=== PATIENT | female | born 1940 | race Caucasian/White ===

== ENCOUNTER 2024-04-14 18:15 | Inpatient (IN) | payer MEDICARE, OTHER ==
[~2024-04-14] VITALS: Ht 152.4 cm; Wt 101.3 kg
[2024-04-14] MEDS ORDERED: CARV12.52 PO (20:00)
[2024-04-14] MEDS ORDERED: FLUT16SP16 BNOSTRILS (20:00)
[2024-04-14] MEDS ORDERED: MONT10TA33 PO (20:00)
[2024-04-14] MEDS ORDERED: HYDR453. TP (20:00)
[2024-04-14] MEDS ORDERED: DAPA10TA PO (20:00)
[2024-04-14] MEDS ORDERED: ALPR1TAB7 PO (20:00)
[2024-04-14] MEDS ORDERED: DICL100G31 TP (20:00)
[2024-04-14] MEDS ORDERED: SPIR25TA6 PO (20:00)
[2024-04-14] MEDS ORDERED: CLOP75TA33 PO (20:00)
[2024-04-14] MEDS ORDERED: PANT40TA49 PO (20:00)
[2024-04-14] MEDS ORDERED: SACU1TAB PO (20:00)
[2024-04-14] MEDS ORDERED: IPRA3AMP23 IH (20:00)
[2024-04-14] MEDS ORDERED: KETO15CR2 TP (20:00)
[2024-04-14] MEDS ORDERED: ROSU20TA2 PO (20:00)
[2024-04-14] MEDS ORDERED: REMEDY ESSENTIAL ZINC PASTE 113 GM TOP PRN (20:15)
[2024-04-14 20:35] VITALS: BP 173/80; TEMP 97.9; O2SAT 93
[2024-04-14] MEDS: METOPROLOL TARTRATE 25 MG TABLET PO SCH (21:30)
[2024-04-14] MEDS: ALPRAZOLAM 0.25 MG TABLET PO SCH (21:30)
[2024-04-15] MEDS ORDERED: HYDROCORTISONE 1% RECTAL CREAM 28.35 GM TUBE RC PRN (08:15)
[2024-04-15 08:29] VITALS: BP 188/99
[2024-04-15] MEDS: PANTOPRAZOLE SODIUM 40 MG TABLET.DR PO SCH (08:44)
[2024-04-15] MEDS ORDERED: CARVEDILOL 12.5 MG TABLET PO SCH (08:45)
[2024-04-15] MEDS: hydrALAZINE HCL 25 MG TABLET PO PRN (08:49)
[2024-04-15] MEDS: CARVEDILOL 12.5 MG TABLET PO SCH (09:00)
[2024-04-15] MEDS ORDERED: PANTOPRAZOLE SODIUM 40 MG TABLET.DR PO SCH (09:00)
[2024-04-15] MEDS: CLOPIDOGREL 75 MG TABLET PO SCH (09:00)
[2024-04-15] MEDS: SPIRONOLACTONE 25 MG TABLET PO SCH (09:00)
[2024-04-15] MEDS: MONTELUKAST SODIUM 10 MG TABLET PO SCH (09:00)
[2024-04-15] MEDS: SACUBITRIL/VALSARTAN 24 MG-26 TABLET PO SCH (09:00)
[2024-04-15] MEDS ORDERED: KETOCONAZOLE 2% CREAM 30 GM TUBE TP SCH (09:00)
[2024-04-15] MEDS: hydrALAZINE HCL 20 MG/1 ML VIAL IV PRN (09:54)
[2024-04-15 12:31] LABS: BASOPHILS # (AUTO) 0.2 K/UL (0.0-0.2); EOSINOPHILS # (AUTO) 0.1 K/uL (0.0-0.7); EOSINOPHILS % (AUTO) 0.6 % (0.0-7.0); HEMATOCRIT 35.1 % (31.2-41.9); HEMOGLOBIN 11.8 g/dL (10.9-14.3); LYMPHOCYTES # (AUTO) 1.4 K/uL (0.8-4.8); MEAN CORPUSCULAR HGB CONC 34 g/dL (32.3-35.6); MEAN CORPUSCULAR VOLUME 83.6 fL (75.5-95.3); MONOCYTES % (AUTO) 6.2 % (0.0-11.0); NEUTROPHILS # (AUTO) 13.3 K/uL (1.8-8.9); NEUTROPHILS % (AUTO) 83.2 % (38.5-71.5); PLATELET COUNT (AUTO) 195 K/uL (179-408); RED CELL DISTRIBUTION WIDTH 13.8 % (12.3-17.7)
[2024-04-15 12:48] LABS: DIFFERENTIAL COMMENT 1
[2024-04-15 12:49] LABS: CALCIUM 9.4 mg/dL (8.5-10.1); CARBON DIOXIDE 29 mmol/L (21-32); CHLORIDE 105 mmol/L (98-107); CREATININE 0.8 mg/dL (0.6-1.3); GLUCOSE 145 mg/dL (74-106); POTASSIUM 3.6 mmol/L (3.5-5.1); SODIUM SERUM 145 mmol/L (136-145); UREA NITROGEN, BLOOD 16 mg/dL (7-18)
[2024-04-15 12:55] LABS: ALANINE AMINOTRANSFERASE 17 U/L (14-59); ALBUMIN 3.2 g/dL (3.4-5.0); ALKALINE PHOSPHATASE 98 U/L (50-136); ASPARTATE AMINOTRANSFERASE 16 U/L (15-37); BILIRUBIN,TOTAL 0.6 mg/dL (0.2-1.0)
[2024-04-15] MEDS ORDERED: MIEBO EACHEYE (13:40)
[2024-04-15 16:00] VITALS: BP 147/78; TEMP 97.6; O2SAT 97
[2024-04-15 16:30] LABS: *BILIRUBIN,URIN NEGATIVE (NEGATIVE); *BLOOD, URINE 1+ (NEGATIVE); *CLARITY,URINE CLEAR (CLEAR); *COLOR,URINE YELLOW (YELLOW); *KETONES,URINE TRACE (NEGATIVE); *PROTEIN,URINE 1+ (NEGATIVE); *UROBILINOGEN,URINE 0.2 E.U./dl (NORMAL); LEUKOCYTE ESTERASE ,URINE NEGATIVE (NEGATIVE); NITRITE, URINE NEGATIVE (NEGATIVE); UGLUCOSE 2+ (NEGATIVE)
[2024-04-15 16:53] LABS: BACTERIA,URINE NONE SEEN /HPF (NONE SEEN); SQUAMOUS EPITHELIAL CELL,UR FEW /HPF (NONE SEEN); WBC,URINE 0-3 /HPF (0-3)
[2024-04-15] MEDS: CLOTRIMAZOLE 1% CREAM 30 GM TUBE TOP SCH (17:47)
[2024-04-15 19:00] VITALS: BP 154/93; TEMP 98.1; O2SAT 94
[2024-04-15] MEDS ORDERED: Medication Not On Formulary EA (Rosuvastatin Calcium (Crestor) 1 TAB) PO SCH (21:00)
[2024-04-15] MEDS ORDERED: ALPRAZOLAM 0.5 MG TABLET PO SCH (21:00)
[2024-04-15] MEDS: ATORVASTATIN 40 MG TABLET PO SCH (21:23)
[2024-04-16 06:00] VITALS: BP 186/97; TEMP 97.9; O2SAT 95
[2024-04-16 06:40] VITALS: BP 173/71; O2SAT 95
[2024-04-16 16:00] VITALS: BP 142/58; TEMP 97.6; O2SAT 98
[2024-04-16] MEDS: DAPAGLIFLOZIN PROPANEDIOL 5 MG TABLET PO SCH (16:39)
[2024-04-16] MEDS: MONTELUKAST SODIUM 10 MG TABLET PO SCH (17:31)
[2024-04-16 20:00] VITALS: BP 133/63; TEMP 98.8; O2SAT 96
[2024-04-17 06:00] VITALS: BP 141/58; TEMP 98.1; O2SAT 94
[2024-04-17] MEDS ORDERED: IV LACTATED RINGERS SOLUTION 1,000 ML BAG IV SCH (14:00)
[2024-04-17] MEDS ORDERED: CEFOTAXIME SODIUM 500 MG VIAL IV SCH (14:00)
[2024-04-17 14:05] VITALS: BP 116/60; TEMP 98; O2SAT 95
[2024-04-17 15:27] VITALS: BP 105/54; TEMP 97.6; O2SAT 93
[2024-04-17] MEDS: VANCOMYCIN IV 1,000 MG in IV DEXTROSE 5% 250 ML IV SCH (15:37)
[2024-04-17] MEDS: IV LACTATED RINGERS SOLUTION 1,000 ML IV ONE (15:38)
[2024-04-17 20:00] VITALS: BP 121/47; TEMP 98.8; O2SAT 95
[2024-04-17] MEDS: CEFEPIME HCL 2 GM in IV DEXTROSE 5% 100 ML IV SCH (22:21)
[2024-04-17 22:24] LABS: BASOPHILS # (AUTO) 0.1 K/UL (0.0-0.2); BASOPHILS % (AUTO) 0.6 % (0.0-2.0); EOSINOPHILS # (AUTO) 0.3 K/uL (0.0-0.7); EOSINOPHILS % (AUTO) 1.8 % (0.0-7.0); HEMATOCRIT 31.1 % (31.2-41.9); HEMOGLOBIN 10.3 g/dL (10.9-14.3); LYMPHOCYTES # (AUTO) 1.3 K/uL (0.8-4.8); LYMPHOCYTES % (AUTO) 8.4 % (20.5-51.5); MEAN CORPUSCULAR HGB CONC 33 g/dL (32.3-35.6); MEAN CORPUSCULAR VOLUME 84.3 fL (75.5-95.3); MONOCYTES # (AUTO) 1.4 K/uL (0.1-1.30); MONOCYTES % (AUTO) 8.9 % (0.0-11.0); NEUTROPHILS # (AUTO) 12.8 K/uL (1.8-8.9); NEUTROPHILS % (AUTO) 80.3 % (38.5-71.5); PLATELET COUNT (AUTO) 184 K/uL (179-408); RED BLOOD CELL COUNT(AUTO) 3.69 MIL/uL (3.63-4.92); RED CELL DISTRIBUTION WIDTH 13.8 % (12.3-17.7); WHITE BLOOD COUNT (AUTO) 15.9 K/uL (3.8-11.8)
[2024-04-17 22:30] LABS: DIFFERENTIAL COMMENT 1
[2024-04-17 22:34] LABS: CALCIUM 8.8 mg/dL (8.5-10.1); CARBON DIOXIDE 29 mmol/L (21-32); CHLORIDE 106 mmol/L (98-107); GLUCOSE 136 mg/dL (74-106); MAGNESIUM 2.2 mg/dL (1.8-2.4); POTASSIUM 3.9 mmol/L (3.5-5.1); SODIUM SERUM 144 mmol/L (136-145); UREA NITROGEN, BLOOD 40 mg/dL (7-18)
[2024-04-18] MEDS: ACETAMINOPHEN 500 MG TABLET PO PRN (04:50)
[2024-04-18 05:00] VITALS: BP 168/67; TEMP 99.1; O2SAT 92
[2024-04-18 05:16] VITALS: BP 140/60; TEMP 98.9; O2SAT 97
[2024-04-18] MEDS: HYDROCORTISONE 1% RECTAL CREAM 28.35 GM TUBE RC PRN (09:33)
[2024-04-18 09:47] LABS: CALCIUM 8.8 mg/dL (8.5-10.1); CARBON DIOXIDE 28 mmol/L (21-32); CHLORIDE 104 mmol/L (98-107); CREATININE 1.1 mg/dL (0.6-1.3); GLUCOSE 155 mg/dL (74-106); POTASSIUM 4.2 mmol/L (3.5-5.1); SODIUM SERUM 142 mmol/L (136-145); UREA NITROGEN, BLOOD 39 mg/dL (7-18)
[2024-04-18] MEDS ORDERED: diphenhydrAMINE 50 MG/1 ML VIAL IV PRN (10:30)
[2024-04-18 13:52] VITALS: O2SAT 97
[2024-04-18 15:13] VITALS: BP 128/54; TEMP 98.1; O2SAT 97
[2024-04-18] MEDS ORDERED: NEOMY/BACITRAC/POLYMI OINT 28.35 GM TUBE TOP SCH (17:45)
[2024-04-18] MEDS: VANCOMYCIN IV 1,000 MG in IV DEXTROSE 5% 250 ML IV SCH (18:33)
[2024-04-18 22:00] VITALS: BP 136/61; TEMP 98.4; O2SAT 97
[2024-04-19 04:27] VITALS: O2SAT 98
[2024-04-19 06:00] VITALS: BP 139/60; TEMP 99.5; O2SAT 97
[2024-04-19 07:33] LABS: CARBON DIOXIDE 30 mmol/L (21-32); CHLORIDE 104 mmol/L (98-107); CREATININE 1.1 mg/dL (0.6-1.3); GLUCOSE 171 mg/dL (74-106); SODIUM SERUM 140 mmol/L (136-145); UREA NITROGEN, BLOOD 41 mg/dL (7-18)
[2024-04-19 12:20] VITALS: O2SAT 97
[2024-04-19 15:17] VITALS: BP 104/44; TEMP 98.7; O2SAT 99
[2024-04-19 15:24] VITALS: BP 104/44; TEMP 98.7; O2SAT 99
[2024-04-19 19:54] VITALS: BP 139/52; TEMP 97.9; O2SAT 95
[2024-04-20 00:24] VITALS: O2SAT 97
[2024-04-20 05:12] VITALS: BP 154/77; TEMP 98; O2SAT 96
[2024-04-20 07:45] LABS: CALCIUM 8.4 mg/dL (8.5-10.1); CARBON DIOXIDE 28 mmol/L (21-32); CHLORIDE 103 mmol/L (98-107); GLUCOSE 143 mg/dL (74-106); SODIUM SERUM 137 mmol/L (136-145); UREA NITROGEN, BLOOD 36 mg/dL (7-18)
[2024-04-20 15:48] VITALS: O2SAT 98
[2024-04-20 16:37] VITALS: BP 148/66; TEMP 98; O2SAT 95
[2024-04-20 19:56] VITALS: BP 142/72; TEMP 98; O2SAT 96
[2024-04-21 05:39] VITALS: BP 106/74; TEMP 97.4; O2SAT 96
[2024-04-21 12:31] LABS: *BILIRUBIN,URIN NEGATIVE (NEGATIVE); *BLOOD, URINE 2+ (NEGATIVE); *CLARITY,URINE CLEAR (CLEAR); *COLOR,URINE YELLOW (YELLOW); *KETONES,URINE NEGATIVE (NEGATIVE); *PROTEIN,URINE 2+ (NEGATIVE); *UROBILINOGEN,URINE 0.2 E.U./dl (NORMAL); LEUKOCYTE ESTERASE ,URINE NEGATIVE (NEGATIVE); NITRITE, URINE NEGATIVE (NEGATIVE); PH,URINE 6.5 (5.0-8.0); UGLUCOSE 2+ (NEGATIVE)
[2024-04-21 12:32] LABS: BACTERIA,URINE FEW /HPF (NONE SEEN); RBC,URINE 20-50 /HPF (0-3); SQUAMOUS EPITHELIAL CELL,UR FEW /HPF (NONE SEEN); WBC,URINE 0-3 /HPF (0-3)
[2024-04-21 13:29] LABS: BASOPHILS # (AUTO) 0.1 K/UL (0.0-0.2); BASOPHILS % (AUTO) 0.8 % (0.0-2.0); EOSINOPHILS # (AUTO) 0.4 K/uL (0.0-0.7); EOSINOPHILS % (AUTO) 2.7 % (0.0-7.0); HEMATOCRIT 33.3 % (31.2-41.9); HEMOGLOBIN 10.9 g/dL (10.9-14.3); LYMPHOCYTES # (AUTO) 1.9 K/uL (0.8-4.8); LYMPHOCYTES % (AUTO) 12.6 % (20.5-51.5); MEAN CORPUSCULAR HEMOGLOBIN 28.1 uug (24.7-32.8); MEAN CORPUSCULAR HGB CONC 33 g/dL (32.3-35.6); MEAN CORPUSCULAR VOLUME 85.4 fL (75.5-95.3); MONOCYTES # (AUTO) 1.4 K/uL (0.1-1.30); MONOCYTES % (AUTO) 9.6 % (0.0-11.0); NEUTROPHILS # (AUTO) 10.9 K/uL (1.8-8.9); NEUTROPHILS % (AUTO) 74.3 % (38.5-71.5); PLATELET COUNT (AUTO) 212 K/uL (179-408); RED CELL DISTRIBUTION WIDTH 13.7 % (12.3-17.7); WHITE BLOOD COUNT (AUTO) 14.7 K/uL (3.8-11.8)
[2024-04-21 13:31] LABS: DIFFERENTIAL COMMENT 1
[2024-04-21 13:37] LABS: CARBON DIOXIDE 25 mmol/L (21-32); CHLORIDE 102 mmol/L (98-107); GLUCOSE 138 mg/dL (74-106); POTASSIUM 4.5 mmol/L (3.5-5.1); SODIUM SERUM 135 mmol/L (136-145); UREA NITROGEN, BLOOD 30 mg/dL (7-18)
[2024-04-21] MEDS: IV D5/ 0.9% NACL 1,000 ML IV PRN (15:18)
[2024-04-21 16:50] VITALS: BP 115/59; TEMP 97.7; O2SAT 97
[2024-04-21 19:58] VITALS: BP 153/74; TEMP 98; O2SAT 97
[2024-04-22 03:40] VITALS: BP 140/77; O2SAT 96
[2024-04-22 13:29] VITALS: BP 166/58
[2024-04-22 15:07] LABS: THYROID STIMULATING HORMONE 3.005 mIU/mL (0.358-3.740)
[2024-04-22 16:29] VITALS: BP 147/49; TEMP 98.3; O2SAT 97
[2024-04-22 20:05] VITALS: BP 166/69; TEMP 96.6; O2SAT 96
[2024-04-22 21:18] VITALS: BP 133/66; O2SAT 96
[2024-04-23 00:18] VITALS: BP 145/76
[2024-04-23 06:32] VITALS: BP 150/78; O2SAT 95
[2024-04-23] MEDS ORDERED: levETIRAcetam IV 500 MG in IV DEXTROSE 5% 100 ML IV SCH (12:00)
[2024-04-23] MEDS ORDERED: LORAZEPAM 2 MG/1 ML VIAL IV PRN (12:00)
[2024-04-23] MEDS: levETIRAcetam IV 500 MG in IV DEXTROSE 5% 100 ML IV SCH (12:32)
[2024-04-23 12:49] VITALS: BP 144/72; TEMP 98; O2SAT 98
== END 2024-04-23 17:07 | disposition short-term general hospital (02) | DRG 689 ==
PROVIDERS: ADMIT Physical Medicine & Rehabilitation Pain Medicine; ATTEND Physical Medicine & Rehabilitation Pain Medicine
PROC: 05H933Z Insertion of Infusion Device into Right Brachial Vein, Percutaneous Approach (ICD-10-PCS; principal; 2024-04-17)
DX: N39.0 Urinary tract infection, site not specified (principal); G93.41 Metabolic encephalopathy; N17.0 Acute kidney failure with tubular necrosis; J69.0 Pneumonitis due to inhalation of food and vomit; I69.351 Hemiplegia and hemiparesis following cerebral infarction affecting right dominant side; R47.01 Aphasia; E86.0 Dehydration; I11.0 Hypertensive heart disease with heart failure; I50.9 Heart failure, unspecified; Z95.0 Presence of cardiac pacemaker; E78.5 Hyperlipidemia, unspecified; F03.90 Unspecified dementia, unspecified severity, without behavioral disturbance, psychotic disturbance, mood disturbance, and anxiety; Z68.35 Body mass index [BMI] 35.0-35.9, adult; E66.9 Obesity, unspecified; J45.909 Unspecified asthma, uncomplicated; R56.9 Unspecified convulsions; Z88.0 Allergy status to penicillin; Z91.018 Allergy to other foods
CPT/HCPCS: 36415; 70450; 70551; 71045; 83605; 83735; 83921; 84100; 84443; 85025; 95819; 97535-GO-CO; A4663; A9150; J0360; J0692; J1953; J3370; J7042; J7050; J7120

== ENCOUNTER 2024-04-23 16:50 | Inpatient (IN) | payer MEDICARE, OTHER ==
[~2024-04-23] VITALS: Ht 152.4 cm; Wt 88.5 kg
[~2024-04-23 16:50] MED LIST: ALPR1TAB7 PO; CARV12.52 PO; CLOP75TA33 PO; DAPA10TA PO; DICL100G31 TP; FLUT16SP16 BNOSTRILS; HYDR453. TP; IPRA3AMP23 IH; KETO15CR2 TP; MIEBO EACHEYE; MONT10TA33 PO; PANT40TA49 PO; ROSU20TA2 PO; SACU1TAB PO; SPIR25TA6 PO
[2024-04-23] MEDS ORDERED: IV D5/ 0.9% NACL 1,000 ML IV PRN (17:45)
[2024-04-23] MEDS ORDERED: hydrALAZINE HCL 20 MG/1 ML VIAL IV PRN ×2 (17:45→18:00)
[2024-04-23] MEDS ORDERED: diphenhydrAMINE 50 MG/1 ML VIAL IV PRN ×2 (17:45→18:00)
[2024-04-23] MEDS: MONTELUKAST SODIUM 10 MG TABLET PO SCH (18:00)
[2024-04-23] MEDS ORDERED: CEFEPIME HCL 2 GM in IV DEXTROSE 5% 100 ML IV SCH ×2 (18:00→20:00)
[2024-04-23] MEDS: CARVEDILOL 12.5 MG TABLET PO SCH (18:00)
[2024-04-23] MEDS ORDERED: REMEDY ESSENTIAL ZINC PASTE 113 GM TOP PRN (18:00)
[2024-04-23] MEDS ORDERED: ACETAMINOPHEN 500 MG TABLET PO PRN ×2 (18:00)
[2024-04-23 19:00] VITALS: BP 145/69; TEMP 98.1; O2SAT 93
[2024-04-23] MEDS: CEFEPIME HCL 2 GM in IV DEXTROSE 5% 100 ML IV SCH (20:38)
[2024-04-23] MEDS ORDERED: Medication Not On Formulary EA (Rosuvastatin Calcium (Crestor) 1 TAB) PO SCH (21:00)
[2024-04-23] MEDS: ATORVASTATIN 40 MG TABLET PO SCH (21:00)
[2024-04-23] MEDS: SACUBITRIL/VALSARTAN 24 MG-26 TABLET PO SCH (21:00)
[2024-04-23] MEDS: levETIRAcetam IV 500 MG in IV DEXTROSE 5% 100 ML IV SCH (21:29)
[2024-04-23] MEDS ORDERED: ONDANSETRON 4 MG/2 ML VIAL IV PRN (21:45)
[2024-04-23] MEDS ORDERED: REMEDY ESSENTIAL ZINC PASTE 113 GM TP PRN (21:45)
[2024-04-23] MEDS ORDERED: ACETAMINOPHEN 650 MG SUPP.RECT RC PRN (21:45)
[2024-04-23] MEDS ORDERED: LORAZEPAM 2 MG/1 ML VIAL IV PRN (22:00)
[2024-04-24 06:00] VITALS: BP 133/62; TEMP 98.1; O2SAT 96
[2024-04-24] MEDS: PANTOPRAZOLE SODIUM 40 MG TABLET.DR PO SCH (06:30)
[2024-04-24 06:32] LABS: BASOPHILS # (AUTO) 0.1 K/UL (0.0-0.2); BASOPHILS % (AUTO) 0.7 % (0.0-2.0); EOSINOPHILS # (AUTO) 0.1 K/uL (0.0-0.7); EOSINOPHILS % (AUTO) 0.5 % (0.0-7.0); HEMATOCRIT 32.4 % (31.2-41.9); HEMOGLOBIN 11.1 g/dL (10.9-14.3); LYMPHOCYTES # (AUTO) 1.6 K/uL (0.8-4.8); LYMPHOCYTES % (AUTO) 7.5 % (20.5-51.5); MEAN CORPUSCULAR HEMOGLOBIN 28.9 uug (24.7-32.8); MEAN CORPUSCULAR HGB CONC 34 g/dL (32.3-35.6); MEAN CORPUSCULAR VOLUME 84.7 fL (75.5-95.3); MONOCYTES # (AUTO) 2.3 K/uL (0.1-1.30); MONOCYTES % (AUTO) 10.3 % (0.0-11.0); NEUTROPHILS # (AUTO) 17.7 K/uL (1.8-8.9); PLATELET COUNT (AUTO) 269 K/uL (179-408); RED BLOOD CELL COUNT(AUTO) 3.83 MIL/uL (3.63-4.92); RED CELL DISTRIBUTION WIDTH 14.1 % (12.3-17.7); WHITE BLOOD COUNT (AUTO) 21.8 K/uL (3.8-11.8)
[2024-04-24 06:37] LABS: CALCIUM 8.6 mg/dL (8.5-10.1); CARBON DIOXIDE 24 mmol/L (21-32); CHLORIDE 110 mmol/L (98-107); CREATININE 1.1 mg/dL (0.6-1.3); GLUCOSE 195 mg/dL (74-106); MAGNESIUM 1.8 mg/dL (1.8-2.4); PHOSPHOROUS 3.4 mg/dL (2.5-4.9); POTASSIUM 3.9 mmol/L (3.5-5.1); SODIUM SERUM 144 mmol/L (136-145); UREA NITROGEN, BLOOD 23 mg/dL (7-18)
[2024-04-24 06:44] LABS: DIFFERENTIAL COMMENT 1
[2024-04-24 08:00] VITALS: BP 121/59; TEMP 97.9; O2SAT 95
[2024-04-24] MEDS: IV D5 1/2 NS 1000 ML 1,000 ML IV PRN (08:09)
[2024-04-24] MEDS: SPIRONOLACTONE 25 MG TABLET PO SCH (09:00)
[2024-04-24] MEDS: CLOPIDOGREL 75 MG TABLET PO SCH (09:00)
[2024-04-24] MEDS: DAPAGLIFLOZIN PROPANEDIOL 5 MG TABLET PO SCH (09:00)
[2024-04-24] MEDS: PANTOPRAZOLE SODIUM 40 MG VIAL IV SCH (09:36)
[2024-04-24] MEDS: HEPARIN SODIUM,PORCINE 5,000 UNITS/ML VIAL SQ SCH (09:37)
[2024-04-24] MEDS: CLOTRIMAZOLE 1% CREAM 30 GM TUBE TOP SCH (09:39)
[2024-04-24 10:55] VITALS: BP 85/33; TEMP 98; O2SAT 88
[2024-04-24] MEDS: IV NORMAL SALINE 500 ML IV ONE (11:01)
[2024-04-24] MEDS ORDERED: VANCOMYCIN IV 1,000 MG in IV DEXTROSE 5% 250 ML IV ONE (11:15)
[2024-04-24] MEDS ORDERED: MVI ADULT 10 ML VIAL=1 AMP 10 ML, THIAMINE HCL INJ 100 MG, FOLIC ACID 1 MG, MAGNESIUM S... IV PRN (11:15)
[2024-04-24] MEDS ORDERED: NOREPINEPHRINE BITARTRATE 32 MG in IV NORMAL SALINE 218 ML IV PRN (11:15)
[2024-04-24 11:31] LABS: ABG BASE EXCESS -9.9 mmol/L (-2.0-3.0); ABG HCO3 16.5 mmol/L (21.0-28.0); ABG PCO2 38.4 mmHg (32.0-45.0); ABG PH 7.252 (7.350-7.450); ABG PO2 131.9 mmHg (83.0-108.0); ABG SITE LEFT RADIAL; ABG TOTAL HEMOGLOBIN 11.9 G/dL (12.0-16.0); AaDO2 98.2 mmHg; COHb 0.4 % (0.5-1.5); MetHb 0.1 % (0.0-1.5); O2Hb 97.9 % (94.0-98.0)
[2024-04-24] MEDS ORDERED: SODIUM BICARBONATE 8.4% 50 MEQ/50 ML DISP.SYRIN IV ONE ×3 (11:45→15:30)
[2024-04-24] MEDS ORDERED: levETIRAcetam IV 500 MG in IV DEXTROSE 5% 100 ML IV ONE (12:00)
[2024-04-24] MEDS ORDERED: MVI ADULT 10 ML VIAL=1 AMP 10 ML in IV D5/ 0.9% NACL 1,000 ML IV PRN (12:00)
[2024-04-24] MEDS ORDERED: IV D5/ 0.9% NACL 1,000 ML IV PRN (12:00)
[2024-04-24] MEDS ORDERED: VANCOMYCIN IV 1,250 MG in IV DEXTROSE 5% 250 ML IV SCH (12:30)
[2024-04-24] MEDS ORDERED: FOLIC ACID 1 MG in IV DEXTROSE 5% 50 ML IV SCH (13:00)
[2024-04-24] MEDS ORDERED: THIAMINE HCL INJ 100 MG in IV DEXTROSE 5% 50 ML IV SCH (13:00)
[2024-04-24] MEDS ORDERED: MAGNESIUM SULFATE/D5W 100 ML IV SCH (13:00)
[2024-04-24 13:09] LABS: THYROID STIMULATING HORMONE 1.93 mIU/mL (0.358-3.740)
[2024-04-24] MEDS ORDERED: IV NS 1000 ML 1,000 ML IV PRN (13:30)
[2024-04-24] MEDS ORDERED: HYDROCORTISONE SOD SUCCINATE 100 MG/2 ML VIAL IV ONE (14:07)
[2024-04-24 15:14] LABS: BASOPHILS # (AUTO) 0.2 K/UL (0.0-0.2); BASOPHILS % (AUTO) 0.4 % (0.0-2.0); EOSINOPHILS # (AUTO) 0.1 K/uL (0.0-0.7); EOSINOPHILS % (AUTO) 0.1 % (0.0-7.0); HEMATOCRIT 32.6 % (31.2-41.9); HEMOGLOBIN 10.4 g/dL (10.9-14.3); LYMPHOCYTES # (AUTO) 4.5 K/uL (0.8-4.8); LYMPHOCYTES % (AUTO) 8.9 % (20.5-51.5); MEAN CORPUSCULAR HEMOGLOBIN 27.7 uug (24.7-32.8); MEAN CORPUSCULAR HGB CONC 32 g/dL (32.3-35.6); MEAN CORPUSCULAR VOLUME 86.9 fL (75.5-95.3); MONOCYTES # (AUTO) 2.1 K/uL (0.1-1.30); MONOCYTES % (AUTO) 4.2 % (0.0-11.0); NEUTROPHILS # (AUTO) 43.6 K/uL (1.8-8.9); NEUTROPHILS % (AUTO) 86.4 % (38.5-71.5); PLATELET COUNT (AUTO) 268 K/uL (179-408); RED BLOOD CELL COUNT(AUTO) 3.75 MIL/uL (3.63-4.92); RED CELL DISTRIBUTION WIDTH 14.5 % (12.3-17.7)
[2024-04-24 15:21] LABS: CALCIUM 10.4 mg/dL (8.5-10.1); CARBON DIOXIDE 18 mmol/L (21-32); CHLORIDE 111 mmol/L (98-107); CREATININE 1.8 mg/dL (0.6-1.3); GLUCOSE 344 mg/dL (74-106); POTASSIUM 4.6 mmol/L (3.5-5.1); SODIUM SERUM 143 mmol/L (136-145); UREA NITROGEN, BLOOD 29 mg/dL (7-18)
[2024-04-24 15:22] LABS: DIFFERENTIAL COMMENT 1
[2024-04-24 15:24] LABS: WHITE BLOOD COUNT (AUTO) 50.5 K/uL (3.8-11.8)
[2024-04-24 15:34] LABS: ALANINE AMINOTRANSFERASE 27 U/L (14-59); ALBUMIN 1.7 g/dL (3.4-5.0); ALKALINE PHOSPHATASE 75 U/L (50-136); ASPARTATE AMINOTRANSFERASE 30 U/L (15-37); BILIRUBIN,DIRECT 0.1 mg/dL (0.0-0.2); BILIRUBIN,TOTAL 0.6 mg/dL (0.2-1.0); NT-PRO BNP 2596 pg/mL (0-125); TOTAL PROTEIN, SERUM 4.5 g/dL (6.4-8.2)
[2024-04-24 16:11] LABS: BAND % (MANUAL) 20 % (0-10); EOSINOPHILS % (MANUAL) 1 % (0-8); LYMPHOCYTES % (MANUAL) 8 % (20-40); METAMYELOCYTES % 1 % (0-1); MONOCYTES % (MANUAL) 3 % (2-10); NEUTROPHILS % (MANUAL) 67 % (42-75); PLATELET ESTIMATE ADEQUATE
[2024-04-24 16:13] LABS: TEAR DROP CELLS OCC
[2024-04-24] MEDS ORDERED: PHENYLEPHRINE IV 100 MG in IV NORMAL SALINE 240 ML IV PRN (16:30)
[2024-04-24 17:59] LABS: ABG BASE EXCESS -6.6 mmol/L (-2.0-3.0); ABG HCO3 18.5 mmol/L (21.0-28.0); ABG PCO2 35.3 mmHg (32.0-45.0); ABG PH 7.337 (7.350-7.450); ABG SITE RIGHT FEMORAL; ABG TOTAL HEMOGLOBIN 11.6 G/dL (12.0-16.0); AaDO2 96.8 mmHg; COHb 0.3 % (0.5-1.5); MetHb 0.1 % (0.0-1.5); VT, ABG 500 mL
[2024-04-24] MEDS ORDERED: levETIRAcetam IV 500 MG in IV DEXTROSE 5% 100 ML IV SCH (21:00)
[2024-04-24] MEDS ORDERED: levETIRAcetam IV 1,000 MG in IV DEXTROSE 5% 100 ML IV SCH (21:00)
== END 2024-04-24 16:00 | DRG 871 ==
LOC: MEDSURG3 16:50 → TELE3 04-24 10:55 → TRANSITION 04-24 11:00
PROVIDERS: ATTEND Nurse Practitioner Acute Care
PROC: 0BH18EZ Insertion of Endotracheal Airway into Trachea, Via Natural or Artificial Opening Endoscopic (ICD-10-PCS; 2024-04-23)
PROC: 5A1935Z Respiratory Ventilation, Less than 24 Consecutive Hours (ICD-10-PCS; principal; 2024-04-24)
PROC: 02HV33Z Insertion of Infusion Device into Superior Vena Cava, Percutaneous Approach (ICD-10-PCS; 2024-04-24)
PROC: 5A12012 Performance of Cardiac Output, Single, Manual (ICD-10-PCS; 2024-04-24)
DX: A41.9 Sepsis, unspecified organism (principal); J18.9 Pneumonia, unspecified organism; J69.0 Pneumonitis due to inhalation of food and vomit; R65.21 Severe sepsis with septic shock; J96.01 Acute respiratory failure with hypoxia; J96.02 Acute respiratory failure with hypercapnia; I69.351 Hemiplegia and hemiparesis following cerebral infarction affecting right dominant side; E87.20 Acidosis, unspecified; I50.32 Chronic diastolic (congestive) heart failure; G93.1 Anoxic brain damage, not elsewhere classified; Z66 Do not resuscitate; E78.5 Hyperlipidemia, unspecified; Z88.0 Allergy status to penicillin; G40.909 Epilepsy, unspecified, not intractable, without status epilepticus; I11.0 Hypertensive heart disease with heart failure; I48.91 Unspecified atrial fibrillation; Z95.0 Presence of cardiac pacemaker; F03.90 Unspecified dementia, unspecified severity, without behavioral disturbance, psychotic disturbance, mood disturbance, and anxiety; J45.909 Unspecified asthma, uncomplicated
CPT/HCPCS: 36415; 36600; 70030-TC; 71045; 83735; 83921; 84100; 84443; 84484; 85025; 85730; 87040; 92950; 93005; 94002; 94760; 95819; A4606; A4663; G0378; J0171; J0692; J1644; J1953; J2470; J3411; J3490; J7040; J7042; J7050

== ENCOUNTER 2024-04-24 15:39 | Emergency (ER) | payer MEDICARE, OTHER ==
[~2024-04-24] VITALS: Ht 154.9 cm; Wt 86.2 kg
[2024-04-24 20:08] VITALS: BP 0/0; O2SAT 0
== END 2024-04-24 20:11 ==
LOC: ER 15:39
DX: Z53.20 Procedure and treatment not carried out because of patient's decision for unspecified reasons (principal)
CPT/HCPCS: 70030-TC; 71045; A4606; A4663